=== PATIENT | male | born 1965 | race Caucasian/White ===

== ENCOUNTER 2018-07-27 12:33 | Outpatient (CLI) | payer MEDICARE ==
[~2018-07-27] VITALS: Ht 168.9 cm; Wt 90.7 kg
[2018-07-27] MEDS ORDERED: RT-ALBUINH INH (12:35)
[2018-07-27] MEDS ORDERED: DICL50TA6 PO (12:35)
== END 2018-07-27 12:39 | disposition home or self-care (01) ==
LOC: PREOP 12:33
PROVIDERS: ATTEND Otolaryngology Otolaryngology/Facial Plastic Surgery
DX: Z01.818 Encounter for other preprocedural examination (principal)

== ENCOUNTER 2018-07-31 05:56 | Day surgery (SDC) | payer MEDICARE ==
[~2018-07-31] VITALS: Ht 168.9 cm; Wt 103.4 kg
[~2018-07-31 05:56] MED LIST: DICL50TA6 PO; RT-ALBUINH INH
--- OUTSIDE RECORDS SUMMARY | 2018-07-31 05:59 | XMS REPORT ---
Author Author [facility] Medical Staff Organization [facility] Address [address] [place], [place] [address] Phone [phone] Summary purpose CCDA Sent to [facility] Chief Complaint and Reason for Visit No authorized Reason for Visit (Admitting Diagnosis) is available for this visit. Problem list No authorized problems tracked for continuity of care are available for this visit. Encounters No authorized problems tracked for encounter diagnoses are available for this visit. Medications No medications recorded for this patient visit Allergies, adverse reactions, alerts Allergen Category Ingredient Status Reaction Severity Onset No known drug allergies No known drug allergies No known drug allergies Active Immunizations No immunizations recorded for this patient visit Relevant diagnostic tests and/or laboratory data No authorized results are available for this patient visit History of procedures Procedure Code Code Type Description Date Performed Performing Physician 83314 CPT-4 EMERGENCY DEPT VISIT 11-28-2015 DONNA LOVE Functional status No functional or cognitive status observations are available for this visit. Vital signs No authorized vital signs are available for this visit. Social history No Social History or smoking status observations were recorded for this visit. ( Unknown if ever smoked.) Treatment Plan No treatment plan text is available for this visit. Hospital discharge instructions No discharge instruction text is available for this visit.
--- OUTSIDE RECORDS SUMMARY | 2018-07-31 06:00 | XMS REPORT ---
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 Chente Lomeli MD [address] [place] [address] Sep, 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 ; 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 ; Mild intermittent asthma, uncomplicated J45.20 and Essential (primary) hypertension I10 Chente Lomeli MD [address] [place] [address] May, Pneumonia due to other specified bacteria J15.8 Chente Lomeli MD [address] [place] [address] May, Chente Lomeli MD [address] [place] [address] Apr, Acute bronchitis, unspecified J20.9 Chente Lomeli MD [address] [place] [address] Apr, Acute bronchitis, unspecified J20.9 Chente Lomeli MD [address] [place] [address] August, 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 Chente Lomeli MD [address] [place] [address] August, 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 Chente Lomeli MD [address] [place] [address] Nov, Chente Lomeli MD [address] [place] [address] Nov, Chente Lomeli MD [address] [place] [address] Oct, Chente Lomeli MD [address] [place] [address] Sep, Essential (primary) hypertension I10 Chente Lomeli MD [address] [place] [address] 16 Sep, 2015 Unilateral primary osteoarthritis, right hip M16.11 and Other sprain of right hip, initial encounter S73.191A Chente Lomeli MD [address] [place] [address] August, Chente Lomeli MD [address] [place] [address] Sep, Cellulitis and abscess of oral soft tissues 528.3 Chente Lomeli MD [address] [place] [address] May, Cellulitis and abscess of oral soft tissues 528.3 IMMUNIZATIONS No Known Immunizations SOCIAL HISTORY Never Assessed REASON FOR VISIT Ty PLAN OF CARE VITAL SIGNS MEDICATIONS Unknown Medications RESULTS No Results PROCEDURES No Known procedures INSTRUCTIONS MEDICATIONS ADMINISTERED No Known Medications MEDICAL (GENERAL) HISTORY Type Description Date Surgical History cyst excised from gums Hospitalization History No know Hospitalization history
--- OUTSIDE RECORDS SUMMARY | 2018-07-31 06:00 | XMS REPORT ---
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 32936701 ALLERGIES No Information ENCOUNTERS Encounter Location Date Diagnosis Chente Lomeli MD [address] [place] [phone] Nov, Chente Lomeli MD [address] [place] [address] Oct, 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 Chente Lomeli MD [address] [place] [address] Oct, Chente Lomeli MD [address] [place] [address] Oct, 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 Chente Lomeli MD [address] [place] [address] Sep, 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 ; 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 ; Mild intermittent asthma, uncomplicated J45.20 and Essential (primary) hypertension I10 Chente Lomeli MD [address] [place] [address] May, Pneumonia due to other specified bacteria J15.8 Chente Lomeli MD [address] [place] [address] May, Chente Lomeli MD [address] [place] [address] Apr, Acute bronchitis, unspecified J20.9 Chente Lomeli MD [address] [place] [address] 10 Shahbaz, 2018 Acute bronchitis, unspecified J20.9 Chente Lomeli MD [address] [place] [address] August, 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 Chente Lomeli MD [address] [place] [address] August, 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 Chente Lomeli MD [address] [place] [address] Nov, Chente Lomeli MD [address] [place] [address] Nov, Chente Lomeli MD [address] [place] [address] Oct, Chente Lomeli MD [address] [place] [address] Sep, Essential (primary) hypertension I10 Chente Lomeli MD [address] [place] [address] 16 Sep, 2015 Unilateral primary osteoarthritis, right hip M16.11 and Other sprain of right hip, initial encounter S73.191A Chente Lomeli MD [address] [place] [address] August, Chente Lomeli MD [address] [place] [address] Sep, Cellulitis and abscess of oral soft tissues 528.3 Chente Lomeli MD [address] [place] [address] 13 May, 2012 Cellulitis and abscess of oral soft tissues 528.3 IMMUNIZATIONS No Known Immunizations SOCIAL HISTORY Never Assessed REASON FOR VISIT acetaminophen/cod #3 PLAN OF CARE VITAL SIGNS MEDICATIONS Unknown Medications RESULTS No Results PROCEDURES No Known procedures INSTRUCTIONS MEDICATIONS ADMINISTERED No Known Medications MEDICAL (GENERAL) HISTORY Type Description Date Surgical History cyst excised from gums
--- OUTSIDE RECORDS SUMMARY | 2018-07-31 06:00 | XMS REPORT ---
Author Author [facility] Medical Staff Organization [facility] Address [address] [place], [place] [address] Phone [phone] Summary purpose CCDA Sent to [facility] Chief Complaint and Reason for Visit Admit Diagnosis 1 R & L GROIN DISCOMFORT Problem list No authorized problems tracked for [...] visit Relevant diagnostic tests and/or laboratory data RESULTS Urinalysis :30:00 Result Normal Range Units Site Clean Catch Urine Color Yellow Yellow Urine Appearance Clear Clear Urine Glucose Negative Negative Urine Bilirubin Negative Negative Urine Ketones Negative Negative Urine Specific [place] L <=1.005 1.010-1.020 Urine PH 6.5 5.5-7.5 Urine Protein Negative Negative Urine Urobilinogen 0.2 0.2-1.0 Urine Nitrites Negative Negative Urine Blood AB Trace Negative Urine Leukocytes Negative Negative Urine WBC's None Seen Urine RBC's None Seen Urine Bacteria None Seen Serology Group :30:00 Result Normal Range Units Urine Amphetamines Negative Negative Urine Cocaine Negative Negative Cannabinoids(Marijuana Negative Negative Urine Benzodiazepines Negative Negative Urine Tricyclic Antidep. Negative Negative Urine Barbiturates Negative Negative Urine MDMA Negative Negative Urine Opiates Negative Negative Urine Phencyclidine Negative Negative Urine Oxycodone Negative Negative Urine Propoxyphene Negative Negative Urinalysis :30:00 Result Normal Range Units Site Clean Catch Urine Color Yellow Yellow Urine Appearance Clear Clear Urine Glucose Negative Negative Urine Bilirubin Negative Negative Urine Ketones Negative Negative Urine Specific [place] L <=1.005 1.010-1.020 Urine PH 6.5 5.5-7.5 Urine Protein Negative Negative Urine Urobilinogen 0.2 0.2-1.0 Urine Nitrites Negative Negative Urine Blood AB Trace Negative Urine Leukocytes Negative Negative Urine WBC's None Seen Urine RBC's None Seen Urine Bacteria None Seen Refractometer 1.005 History of procedures Procedure Code Code Type Description Date Performed Performing Physician 30931 CPT-4 EMERGENCY DEPT VISIT 11-28-2015 DONNA LOVE 39540 CPT-4 THER/PROPH/DIAG INJ, SC/IM 11-28-2015 DONNA LOVE 19188 CPT-4 DRUG SCREEN NON TLC DEVICES 11-28-2015 DONNA LOVE 59702 CPT-4 URINALYSIS, AUTO W/SCOPE 11-28-2015 DONNA LOVE J1885 CPT-4 KETOROLAC TROMETHAMINE INJ 11-28-2015 DONNA LOVE 20935 CPT-4 URINALYSIS TEST PROCEDURE 11-28-2015 DONNA LOVE Functional status Cognitive Status Finding Observation Time Level of Consciousne Alert [id number] Oriented to Person Yes [id number]:[address] Yes [id number]:55 Oriented to Time Yes 34-23-655625:55 Vital signs Type Value Date Respirations 20 :15 Pulse 96 :15 O2 Saturation 95% :15 Systolic Blood Press 164mm/HG :15 Diastolic Blood Pres 90mm/HG :15 Temperature (Fahr) 98.1Degrees :15 Social history Type Value Smoking Status CURRENT EVERY DAY SMOKER Treatment Plan No treatment plan text is available for this visit. Hospital discharge instructions Diagnosis strain inguinal ligament left chronic Diet as tolerated Activity Level as tolerated Follow up with pcp Appointment Date and this week Other Instructions advil 2tabs 3x daily after a meal
--- OUTSIDE RECORDS SUMMARY | 2018-07-31 06:00 | XMS REPORT ---
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 41437898 ALLERGIES No Known Allergies ENCOUNTERS Encounter Location Date Diagnosis Chente Lomeli MD [address] [place] [address] Oct, Chente Lomeli MD [address] [place] [address] Oct, 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 Chente Lomeli MD [address] [place] [address] Sep, 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 ; 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 ; Mild intermittent asthma, uncomplicated J45.20 and Essential (primary) hypertension I10 Chente Lomeli MD [address] [place] [address] May, Pneumonia due to other specified bacteria J15.8 Chente Lomeli MD [address] [place] [address] May, Chente Lomeli MD [address] [place] [address] Apr, Acute bronchitis, unspecified J20.9 Chente Lomeli MD [address] [place] [address] Apr, Acute bronchitis, unspecified J20.9 Chente Lomeli MD [address] [place] [address] August, 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 Chente Lomeli MD [address] [place] [address] August, 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 Chente Lomeli MD [address] [place] [address] Nov, Chente Lomeli MD [address] [place] [address] Nov, Chente Lomeli MD [address] [place] [address] Oct, Chente Lomeli MD [address] [place] [address] 30 Sep, 2015 Essential (primary) hypertension I10 Chente Lomeli MD [address] [place] [address] 16 Sep, 2015 Unilateral primary osteoarthritis, right hip M16.11 and Other sprain of right hip, initial encounter S73.191A Chente Lomeli MD [address] [place] [address] August, Chente Lomeli MD [address] [place] [address] Sep, Cellulitis and abscess of oral soft tissues 528.3 Chente Lomeli MD [address] [place] [address] 13 May, 2012 Cellulitis and abscess of oral soft tissues 528.3 IMMUNIZATIONS No Known Immunizations SOCIAL HISTORY Never Assessed REASON FOR VISIT needs referral to a surgeon for hip replacement, SOB, wants Albuterol for nebulizer, he needs something for pain, Diclofenac is not helping, he only wants 10-12 days of it until his Medicaid kicks in PLAN OF CARE Activity Details Follow Up 3 Weeks Reason: VITAL SIGNS Height 66.0 in 2017-10-21 Weight 219 lbs 2017-10-21 BMI 35.34 kg/m2 2017-10-21 Heart Rate 102 /min 2017-10-21 Oximetry 95 % 2017-10-21 Respiratory Rate 22 /min 2017-10-21 Blood pressure systolic 193 mm Hg 2017-10-21 Blood pressure diastolic 102 mm Hg 2017-10-21 MEDICATIONS Medication Instructions Dosage Frequency Start Date End Date Duration Status Acetaminophen-Codeine #3 300-30 MG Orally 4 times a day 1 tablet as needed 6h Sep, Oct, 07 days Active Albuterol Sulfate HFA 108 (90 Base) MCG/ACT Inhalation every 6 hrs 2 puffs as needed 6h Apr, Active Diclofenac Sodium 50 MG TAKE ONE TABLET BY MOUTH THREE TIMES DAILY. Active Albuterol Sulfate (2.5 MG/3ML) 0.083% Inhalation Three times a day 3 ml as needed 8h Apr, Active RESULTS No Results PROCEDURES No Known procedures INSTRUCTIONS MEDICATIONS ADMINISTERED No Known Medications MEDICAL (GENERAL) HISTORY Type Description Date Surgical History cyst excised from gums
--- OUTSIDE RECORDS SUMMARY | 2018-07-31 06:00 | XMS REPORT ---
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 09644984 ALLERGIES No Information ENCOUNTERS Encounter Location Date Diagnosis Chente Lomeli MD [address] [place] [address] Dec, Chente Lomeli MD [address] [place] [address] Nov, 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 Chente Lomeli MD [address] [place] [address] Nov, Chente Lomeli MD [address] [place] [address] Nov, Chente Lomeli MD [address] [place] [address] Oct, 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 Chente Lomeli MD [address] [place] [address] Oct, Chente Lomeli MD [address] [place] [address] Oct, 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 Chente Lomeli MD [address] [place] [address] Sep, 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 ; 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 Chente Lomeli MD [address] [place] [address] August, 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 Chente Lomeli MD [address] [place] [address] Nov, Chente Lomeli MD [address] [place] [address] Nov, Chente Lomeli MD [address] [place] [address] Oct, Chente Lomeli MD [address] [place] [address] Sep, Essential (primary) hypertension I10 Chente Lomeli MD [address] [place] [address] Sep, Unilateral primary osteoarthritis, right hip M16.11 and Other sprain of right hip, initial encounter S73.191A Chente Lomeli MD [address] [place] [address] August, Chente Lomeli MD [address] [place] [address] Sep, Cellulitis and abscess of oral soft tissues 528.3 Chente Lomeli MD [address] [place] [address] May, Cellulitis and abscess of oral soft tissues 528.3 IMMUNIZATIONS No Known Immunizations SOCIAL HISTORY Never Assessed REASON FOR VISIT acetaminophen #3 refil PLAN OF CARE VITAL SIGNS MEDICATIONS Medication Instructions Dosage Frequency Start Date End Date Duration Status Acetaminophen-Codeine #3 300-30 MG Orally 4 times a day 1 tablet as needed 6h Sep, 30 days Active RESULTS No Results PROCEDURES No Known procedures INSTRUCTIONS MEDICATIONS ADMINISTERED No Known Medications MEDICAL (GENERAL) HISTORY Type Description Date Surgical History cyst excised from gums Hospitalization History No know Hospitalization history
--- OUTSIDE RECORDS SUMMARY | 2018-07-31 06:00 | XMS REPORT ---
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 02917026 ALLERGIES No Information ENCOUNTERS Encounter Location Date Diagnosis Chente Lomeli MD [address] [place] [address] Oct, 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 Chente Lomeli MD [address] [place] [address] Sep, 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 ; 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 ; Mild intermittent asthma, uncomplicated J45.20 and Essential (primary) hypertension I10 Chente Lomeli MD [address] [place] [address] 07 May, 2017 Pneumonia due to other specified bacteria J15.8 Chente Lomeli MD [address] [place] [address] May, Chente Lomeli MD [address] [place] [address] Apr, Acute bronchitis, unspecified J20.9 Chente Lomeli MD [address] [place] [address] Apr, Acute bronchitis, unspecified J20.9 Chente Lomeli MD [address] [place] [address] August, 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 Chente Lomeli MD [address] [place] [address] August, 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 Chente Lomeli MD [address] [place] [address] Nov, Chente Lomeli MD [address] [place] [address] Nov, Chente Lomeli MD [address] [place] [address] Oct, Chente Lomeli MD [address] [place] [address] Sep, Essential (primary) hypertension I10 Chente Lomeli MD [address] [place] [address] 16 Sep, 2015 Unilateral primary osteoarthritis, right hip M16.11 and Other sprain of right hip, initial encounter S73.191A Chente Lomeli MD [address] [place] [address] August, Chente Lomeli MD [address] [place] [address] Sep, Cellulitis and abscess of oral soft tissues 528.3 Chente Lomeli MD [address] [place] [address] May, Cellulitis and abscess of oral soft tissues 528.3 IMMUNIZATIONS No Known Immunizations SOCIAL HISTORY Never Assessed REASON FOR VISIT Tylenol #3 PLAN OF CARE VITAL SIGNS MEDICATIONS Medication Instructions Dosage Frequency Start Date End Date Duration Status Acetaminophen-Codeine #3 300-30 MG Orally 4 times a day 1 tablet as needed 6h Sep, Nov, 30 days Active RESULTS No Results PROCEDURES No Known procedures INSTRUCTIONS MEDICATIONS ADMINISTERED No Known Medications MEDICAL (GENERAL) HISTORY Type Description Date Surgical History cyst excised from gums
--- OUTSIDE RECORDS SUMMARY | 2018-07-31 06:00 | XMS REPORT ---
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 58310263 ALLERGIES No Information ENCOUNTERS Encounter Location Date Diagnosis Chente Lomlei MD [address] [place] [phone] Dec, Chente Lomeli MD [address] [place] [phone] Nov, 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 Chente Lomeli MD [address] [place] [phone] Nov, Chente Lomeli MD [address] [place] [address] Nov, Chente Lomeli MD [address] [place] [address] Oct, 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 Chente Lomeli MD [address] [place] [address] Oct, Chente Lomeli MD [address] [place] [address] Oct, 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 Chente Lomeli MD [address] [place] [address] Sep, 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 ; 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 ; Mild intermittent asthma, uncomplicated J45.20 and Essential (primary) hypertension I10 Chente Lomeli MD [address] [place] [phone] 07 May, 2017 Pneumonia due to other specified bacteria J15.8 Chente Lomeli MD [address] [place] [phone] May, Chente Lomeli MD [address] [place] [address] Apr, Acute bronchitis, unspecified J20.9 Chente Lomeli MD [address] [place] [address] Apr, Acute bronchitis, unspecified J20.9 Chente Lomeli MD [address] [place] [address] August, 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 Chente Loemli MD [address] [place] [address] August, 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 Chente Lomeli MD [address] [place] [address] Nov, Chente Lomeli MD [address] [place] [address] Nov, Chente Lomeli MD [address] [place] [phone] Oct, Chente Lomeli MD [address] [place] [address] Sep, Essential (primary) hypertension I10 Chente Lomeli MD [address] [place] [address] Sep, Unilateral primary osteoarthritis, right hip M16.11 and Other sprain of right hip, initial encounter S73.191A Chente Lomeli MD [address] [place] [address] August, Chente Lomeli MD [address] [place] [address] Sep, Cellulitis and abscess of oral soft tissues 528.3 Chente Lomeli MD [address] [place] [address] 13 May, 2012 Cellulitis and abscess of oral soft tissues 528.3 IMMUNIZATIONS No Known Immunizations SOCIAL HISTORY Never Assessed REASON FOR VISIT PLAN OF CARE VITAL SIGNS MEDICATIONS Unknown Medications RESULTS No Results PROCEDURES No Known procedures INSTRUCTIONS MEDICATIONS ADMINISTERED No Known Medications MEDICAL (GENERAL) HISTORY Type Description Date Surgical History cyst excised from gums Hospitalization History No know Hospitalization history
--- OUTSIDE RECORDS SUMMARY | 2018-07-31 06:00 | XMS REPORT ---
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 03007375 ALLERGIES No Information ENCOUNTERS Encounter Location Date Diagnosis Chente Lomeli MD [address] [place] [address] Oct, 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 Chente Lomeli MD [address] [place] [address] Oct, Chente Lomeli MD [address] [place] [address] Oct, 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 Chente Lomeli MD [address] [place] [address] Sep, 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 ; 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 ; Mild intermittent asthma, uncomplicated J45.20 and Essential (primary) hypertension I10 Chente Lomeli MD [address] [place] [phone] May, Pneumonia due to other specified bacteria J15.8 Chente Lomeli MD [address] [place] [address] May, Chente Lomeli MD [address] [place] [address] Apr, Acute bronchitis, unspecified J20.9 Chente Lomeli MD [address] [place] [phone] Apr, Acute bronchitis, unspecified J20.9 Chente Lomeli MD [address] [place] [address] August, 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 Chente Lomeli MD [address] [place] [address] August, 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 Chente Lomeli MD [address] [place] [phone] Nov, Chente Lomeli MD [address] [place] [address] Nov, Chente Lomeli MD [address] [place] [phone] Oct, Chente Lomeli MD [address] [place] [address] Sep, Essential (primary) hypertension I10 Chente Lomeli MD [address] [place] [address] Sep, Unilateral primary osteoarthritis, right hip M16.11 and Other sprain of right hip, initial encounter S73.191A Chente Lomeli MD [address] [place] [phone] August, Chente Lomeli MD [address] [place] [phone] Sep, Cellulitis and abscess of oral soft tissues 528.3 Chente Lomeli MD [address] [place] [address] May, Cellulitis and abscess of oral soft tissues 528.3 IMMUNIZATIONS No Known Immunizations SOCIAL HISTORY Never Assessed REASON FOR VISIT acetaminophen CoD#3 PLAN OF CARE VITAL SIGNS MEDICATIONS Medication [...]
--- OUTSIDE RECORDS SUMMARY | 2018-07-31 06:01 | XMS REPORT ---
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 29209387 ALLERGIES No Known Allergies ENCOUNTERS Encounter Location Date Diagnosis Chente Lomeli MD [address] [place] [phone] 07 May, 2017 Pneumonia due to other specified bacteria J15.8 Chente Lomeli MD [address] [place] [phone] May, Chente Lomeli MD [address] [place] [phone] Apr, Acute bronchitis, unspecified J20.9 Chente Lomeli MD [address] [place] [address] Apr, Acute bronchitis, unspecified J20.9 Chente Lomeli MD [address] [place] [address] August, 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 Chente Lomeli MD [address] [place] [address] August, 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 Chente Lomeli MD [address] [place] [phone] Nov, Chente Lomeli MD [address] [place] [phone] Nov, Chente Lomeli MD [address] [place] [phone] Oct, Chente Lomeli MD [address] [place] [address] Sep, Essential (primary) hypertension I10 Chente Lomeli MD [address] [place] [address] Sep, Unilateral primary osteoarthritis, right hip M16.11 and Other sprain of right hip, initial encounter S73.191A Chente Lomeli MD [address] [place] [address] August, Chente Lomeli MD [address] [place] [address] Sep, Cellulitis and abscess of oral soft tissues 528.3 Chente Lomeli MD [address] [place] [address] May, Cellulitis and abscess of oral soft tissues 528.3 IMMUNIZATIONS No Known Immunizations SOCIAL HISTORY Never Assessed REASON FOR VISIT Follow up on his visit from 05-07-17, Not coughing as much and he still is coughing up some light clear sputum. PLAN OF CARE Activity Details Follow Up prn Reason: VITAL SIGNS Height 66.0 in 2017-05-16 Weight 224 lbs 2017-05-16 BMI 36.15 kg/m2 2017-05-16 Heart Rate 105 /min 2017-05-16 Oximetry 97 % 2017-05-16 Temperature 97.6 degrees Fahrenheit 2017-05-16 Blood pressure systolic 173 mm Hg 2017-05-16 Blood pressure diastolic 92 mm Hg 2017-05-16 MEDICATIONS Medication Instructions Dosage Frequency Start Date End Date Duration Status Diclofenac Sodium 50 MG TAKE ONE TABLET BY MOUTH THREE TIMES DAILY. Active Amoxicillin 500 MG Orally three times a day 1 capsule 8h Apr, Apr, 10 day(s) Active Albuterol Sulfate (2.5 MG/3ML) 0.083% Inhalation Three times a day 3 ml as needed 8h Apr, Active Albuterol Sulfate HFA 108 (90 Base) MCG/ACT Inhalation every 6 hrs 2 puffs as needed 6h Apr, Active RESULTS No Results PROCEDURES Procedure Date Ordered Result Body Site DOC PATIENT CURRNT NON-TOBACCO USER May 16, 2017 PAIN ASSESS NEG NO F/U PLAN RQR May 16, 2017 INSTRUCTIONS MEDICATIONS ADMINISTERED No Known Medications MEDICAL (GENERAL) HISTORY Type Description Date Surgical History cyst excised from gums
--- OUTSIDE RECORDS SUMMARY | 2018-07-31 06:01 | XMS REPORT ---
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 16089358 ALLERGIES No Known Allergies ENCOUNTERS Encounter Location Date Diagnosis Chente Lomeli MD [address] [place] [phone] 07 May, 2017 Pneumonia due to other specified bacteria J15.8 Chente Lomeli MD [address] [place] [phone] May, Chente Lomeli MD [address] [place] [address] Apr, Acute bronchitis, unspecified J20.9 Chente Lomeli MD [address] [place] [address] Apr, Acute bronchitis, unspecified J20.9 Chente Lomeli MD [address] [place] [address] August, 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 Chente Lomeli MD [address] [place] [address] August, 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 Chente Lomeli MD [address] [place] [address] Nov, hCente Lomeli MD [address] [place] [phone] Nov, Chente Lomeli MD [address] [place] [address] Oct, Chente Lomeli MD [address] [place] [address] Sep, Essential (primary) hypertension I10 Chente Lomeli MD [address] [place] [address] Sep, Unilateral primary osteoarthritis, right hip M16.11 and Other sprain of right hip, initial encounter S73.191A Chente Lomeli MD [address] [place] [address] August, Chente Lomeli MD [address] [place] [address] 19 Sep, 2012 Cellulitis and abscess of oral soft tissues 528.3 Chente Lomeli MD [address] [place] [address] May, Cellulitis and abscess of oral soft tissues 528.3 IMMUNIZATIONS No Known Immunizations SOCIAL HISTORY Never Assessed REASON FOR VISIT SOB, it is worse first thing in the am, yesterday he was so SOB he used his moms oxygen, diarrhea X 5 days PLAN OF CARE Activity Details Follow Up 2 - 3 Days Reason:If not markedly improved VITAL SIGNS Height 66.0 in 2017-06-04 Weight 217 lbs 2017-06-04 BMI 35.02 kg/m2 2017-06-04 Heart Rate 90 /min 2017-06-04 Oximetry 89 % 2017-06-04 Temperature 96.6 degrees Fahrenheit 2017-06-04 Respiratory Rate 24 /min 2017-06-04 MEDICATIONS Medication Instructions Dosage Frequency Start Date End Date Duration Status Albuterol Sulfate HFA 108 (90 Base) MCG/ACT Inhalation every 6 hrs 2 puffs as needed 6h Apr, Active Augmentin 500-125 MG Orally Three times a day 1 tablet 8h May, May, 10 days Active Diclofenac Sodium 50 MG TAKE ONE TABLET BY MOUTH THREE TIMES DAILY. Active Albuterol Sulfate (2.5 MG/3ML) 0.083% Inhalation Three times a day 3 ml as needed 8h Apr, Active RESULTS Name Result Date Reference Range Chest X-ray PA and lateral 2017-06-04 PROCEDURES No Known procedures INSTRUCTIONS MEDICATIONS ADMINISTERED No Known Medications MEDICAL (GENERAL) HISTORY Type Description Date Surgical History cyst excised from gums
--- OUTSIDE RECORDS SUMMARY | 2018-07-31 06:01 | XMS REPORT ---
Author Author Chente Lomeli Organization [employer] Address Unknown Phone Unavailable Care Team Providers Care Sock Ironer Name Role Phone Chente Lomeli CP Unavailable Allergies, Adverse Reactions, Alerts Substance Reaction Event Type N.K.D.A. Info Not Available Non Drug Allergy Problems Problem Type Condition Code Onset Dates Condition Status Assessment Essential (primary) hypertension I10 Active Medications Medication Code System Code Instructions Start Date End Date Status Dosage Cephalexin [facility] [address]-25 500 MG Orally three times a day October 14, 2012 1 capsule Vital Signs Date/Time: October 26, 2015 Blood Pressure Systolic 165 mm Hg Weight 00 lbs Height 66.0 in Blood Pressure Diastolic 91 mm Hg Results No Known Results Summary Purpose [employer] Submission
--- OUTSIDE RECORDS SUMMARY | 2018-07-31 06:01 | XMS REPORT | Continuity of Care Document ---
Author Author [facility] Organization [facility] Address Unknown Phone Unavailable Allergies Active Description Code Type Severity Reaction Onset Reported/Identified Relationship to Patient Clinical Status Yes No Known Drug Allergies 39937556 N/A N/A Yes No Known Environmental Allergies 66151428 N/A N/A Yes No Known Food Allergies 50421548 N/A N/A Yes No known drug allergies 32470766 ND N/A N/A 11/28/2015 Confirmed or Verified Medications There is no data. Problems Date Dx Coded Attending Type Code Diagnosis Diagnosed By 11/28/2015 DONNA LOVE MD R10.32 Left lower quadrant pain 11/28/2015 DONNA LOVE MD R26.2 Difficulty in walking, not elsewhere classified 11/28/2015 DONNA LOVE MD S39.83XA Other specified injuries of pelvis, initial encounter 11/28/2015 DONNA LOVE MD Y93.9 Activity, unspecified 11/28/2015 DONNA LOVE MD R10.32 Left lower quadrant pain 11/28/2015 DONNA LOVE MD R26.2 Difficulty in walking, not elsewhere classified 11/28/2015 DONNA LOVE MD S39.83XA Other specified injuries of pelvis, initial encounter 11/28/2015 DONNA LOVE MD Y93.9 Activity, unspecified 12/22/2017 P [id number] Encounter for preprocedural cardiovascular examination 12/22/2017 S W28593 Encounter for preprocedural laboratory examination 12/22/2017 S Z0183 Encounter for blood typing 01/08/2018 S E669 Obesity, unspecified 01/08/2018 P M1612 Unilateral primary osteoarthritis, left hip 01/08/2018 S Z6834 Body mass index (BMI) 34.0-34.9, adult 01/08/2018 S Z720 Tobacco use 01/08/2018 S P49800 [facility] (current[facility] drug therapy 01/08/2018 S E669 Obesity, unspecified 01/08/2018 P M1612 Unilateral primary osteoarthritis, left hip 01/08/2018 S Z6834 Body mass index (BMI) 34.0-34.9, adult 01/08/2018 S Z720 Tobacco use 01/08/2018 S 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 07/14/2018 KSENIA MARTÍNEZ MD Other M16.11 UNILATERAL PRIMARY OSTEOARTHRITIS, RIGHT HIP 07/14/2018 Other J15.8 PNEUMONIA DUE TO OTHER SPECIFIED BACTERIA 07/14/2018 KSENIA MARTÍNEZ MD Other M16.11 UNILATERAL PRIMARY OSTEOARTHRITIS, RIGHT HIP 07/14/2018 Other J15.8 PNEUMONIA DUE TO OTHER SPECIFIED BACTERIA Procedures Code [place] [address] DRUG SCREEN NON TLC DEVICES DONNA LOVE MD 11/28/2015 70808 URINALYSIS AUTO W/SCOPE DONNA LOVE MD 11/28/2015 84418 URINALYSIS TEST PROCEDURE DONNA LOVE MD 11/28/2015 48638 THER/PROPH/DIAG INJ SC/IM DONNA LOVE MD 11/28/2015 68655 EMERGENCY DEPT VISIT DONNA LOVE MD 11/28/2015 J1885 KETOROLAC TROMETHAMINE INJ DONNA LOVE MD 11/28/2015 57614 EMERGENCY DEPT VISIT DONNA LOVE MD 11/28/2015 [id number] Replacement of Left Hip Joint with Ceramic on Polyethylene Synthetic Substitute, Uncemented, Open Approach 01/07/2018 Results Test Result Range Urinalysis - 11/28/15 21:39 Glucose Negative Negative Leukocyte Negative Negative Nitrite Negative Negative pH 6.5 5.5-7.5 Urine Appearance Clear Clear Protein Negative Negative Ketones Negative Negative Urobilinogen 0.2 0.2-1.0 Urine RBC NONESEEN Specific Saxon <=1.005 1.010-1.020 Urine WBC NONESEEN Urine Bacteria NONESEEN Blood Trace Negative Color Yellow Yellow SG by Refractometer 1.005 Bilirubin Negative Negative Site CC Urine Drug Screen - 11/28/15 21:40 Opiates Ur NEG Negative MDMA Ur NEG Negative Tricyclics Ur NEG Negative Propoxyphene Ur NEG Negative Phencyclidine Ur NEG Negative Cannabinoid Ur NEG Negative Oxycodone Ur NEG Negative Amphetamine Ur NEG Negative Cocaine Ur NEG Negative Barbituates Ur NEG Negative Benzo Ur NEG Negative Encounters ACCT No. Visit Date/Time Discharge Status Pt. Type Provider Facility Loc./Unit Complaint [id number] 04/17/2018 17:05:40 04/17/2018 23:59:59 CLS Outpatient Annette Oropeza [id number] 03/05/2018 17:12:06 03/05/2018 23:59:59 CLS Outpatient Annette Oropeza [id number] 11/28/2015 21:20:00 11/28/2015 23:00:00 DIS Emergency KATE BERRY, [facility] ER [id number] 11/28/2015 21:30:00 11/28/2015 21:30:00 DIS Outpatient KATE BERRY, [facility] OTHER [id number] 08/28/2016 12:33:00 08/28/2016 23:59:59 CLS Outpatient TANYA BERRY, [facility] RAD [id number] 06/05/2017 11:11:00 Document Registration [id number] 02/13/2018 13:27:39 Document Registration [id number] 01/02/2018 11:32:51 Document Registration [id number] 12/26/2017 08:04:40 Document Registration [id number] 12/22/2017 10:09:00 Document Registration
--- OUTSIDE RECORDS SUMMARY | 2018-07-31 06:01 | XMS REPORT ---
Author Author Chente Lomeli Organization [employer] Address Unknown Phone Unavailable Care Team Providers Care Artist Model Name Role Phone Chente Lomeli CP Unavailable Allergies No Known Allergies Problems No Known Problems Medications Medication Code System Code Instructions Start Date End Date Status Dosage Diclofenac Sodium [facility] [address]-34 50 MG Orally Three times a day Dec 01, 2015 Dec 11, 2015 1 tablet Results No Known Results Summary Purpose [employer] Submission
--- OUTSIDE RECORDS SUMMARY | 2018-07-31 06:01 | XMS REPORT ---
Author Author Chente Lomeli Organization [employer] Address Unknown Phone Unavailable Care Team Providers Care Electrician Name Role Phone Chente Lomeli CP Unavailable Allergies No Known Allergies Problems No Known Problems Medications Medication Code System Code Instructions Start Date End Date Status Dosage Diclofenac Sodium [facility] [address]-22 50 MG Orally Three times a day Dec 01, 2015 1 tablet Results No Known Results Summary Purpose [employer] Submission
--- OUTSIDE RECORDS SUMMARY | 2018-07-31 06:01 | XMS REPORT ---
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 26226595 ALLERGIES No Information ENCOUNTERS Encounter Location Date Diagnosis Chente Lomeli MD [address] [place] [address] Oct, Chente Lomeli MD [address] [place] [address] Oct, 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 Chente Lomeli MD [address] [place] [address] Sep, 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 ; 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 ; Mild intermittent asthma, uncomplicated J45.20 and Essential (primary) hypertension I10 Chente Lomeli MD [address] [place] [address] May, Pneumonia due to other specified bacteria J15.8 Chente Lomeli MD [address] [place] [address] May, Chente Lomeli MD [address] [place] [address] Apr, Acute bronchitis, unspecified J20.9 Chente Lomeli MD [address] [place] [address] Apr, Acute bronchitis, unspecified J20.9 Chente Lomeli MD [address] [place] [address] August, 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 Chente Lomeli MD [address] [place] [address] August, 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 Chente Lomeli MD [address] [place] [address] Nov, Chente Lomeli MD [address] [place] [address] Nov, Chente Lomeli MD [address] [place] [address] Oct, Chente Lomeli MD [address] [place] [address] 30 Sep, 2015 Essential (primary) hypertension I10 Chente Lomeli MD [address] [place] [address] 16 Sep, 2015 Unilateral primary osteoarthritis, right hip M16.11 and Other sprain of right hip, initial encounter S73.191A Chente Lomeli MD [address] [place] [address] August, Chente Lomeli MD [address] [place] [address] Sep, Cellulitis and abscess of oral soft tissues 528.3 Chente Lomeli MD [address] [place] [address] 13 May, 2012 Cellulitis and abscess of oral soft tissues 528.3 IMMUNIZATIONS No Known Immunizations SOCIAL HISTORY Never Assessed REASON FOR VISIT albuterol PLAN OF CARE VITAL SIGNS MEDICATIONS Unknown Medications RESULTS No Results PROCEDURES No Known procedures INSTRUCTIONS MEDICATIONS ADMINISTERED No Known Medications MEDICAL (GENERAL) HISTORY Type Description Date Surgical History cyst excised from gums
--- OUTSIDE RECORDS SUMMARY | 2018-07-31 06:01 | XMS REPORT ---
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 69185397 ALLERGIES No Information ENCOUNTERS Encounter Location Date Diagnosis Chente Lomeli MD [address] [place] [phone] 07 May, 2017 Pneumonia due to other specified bacteria J15.8 Chente Lomeli MD [address] [place] [phone] May, Chente Lomeli MD [address] [place] [phone] Apr, Acute bronchitis, unspecified J20.9 Chente oLmeli MD [address] [place] [phone] Apr, Acute bronchitis, unspecified J20.9 Chente Lomeli MD [address] [place] [phone] August, 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 Chente Lomeli MD [address] [place] [phone] August, 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 Chente Lomeli MD [address] [place] [phone] Nov, Chente Lomeli MD [address] [place] [phone] Nov, Chente Lomeli MD [address] [place] [phone] Oct, Chente Lomeli MD [address] [place] [phone] Sep, Essential (primary) hypertension I10 Chente Lomeli MD [address] [place] [phone] Sep, Unilateral primary osteoarthritis, right hip M16.11 and Other sprain of right hip, initial encounter S73.191A Chente Lomeli MD [address] [place] [phone] August, Chente Lomeli MD [address] [place] [phone] Sep, Cellulitis and abscess of oral soft tissues 528.3 Chente Lomeli MD [address] [place] [phone] May, Cellulitis and abscess of oral soft tissues 528.3 IMMUNIZATIONS No Known Immunizations SOCIAL HISTORY Never Assessed REASON FOR VISIT antibiotics PLAN OF CARE VITAL SIGNS MEDICATIONS Medication Instructions Dosage Frequency Start Date End Date Duration Status Azithromycin 500 MG Orally Once a day 1 tablet 24h May, May, 3 days Active RESULTS No Results PROCEDURES No Known procedures INSTRUCTIONS MEDICATIONS ADMINISTERED No Known Medications MEDICAL (GENERAL) HISTORY Type Description Date Surgical History cyst excised from gums
[2018-07-31] MEDS ORDERED: LACTATED RINGERS 1,000 ML IV PRN (06:29)
[2018-07-31 06:31] VITALS: BP 150/92
[2018-07-31] MEDS ORDERED: DEXAMETHASONE 10 MG/ML (DECADRON) 1 ML VIAL ONE (07:06)
[2018-07-31] MEDS ORDERED: ONDANSETRON 4 MG/2 ML (SDV) Z0FRAN ONE (07:06)
[2018-07-31] MEDS ORDERED: MIDAZOLAM 2 MG/2 ML (VERSED) VIAL ONE (07:06)
[2018-07-31] MEDS ORDERED: proPOfol 200 MG/20 ML (DIPRIVAN) VIAL IV ONE ×2 (07:06→07:43)
[2018-07-31] MEDS ORDERED: fentaNYL INJECTION 100 MCG/2 ML AMP ONE (07:06)
[2018-07-31] MEDS ORDERED: LIDOCAINE PF 2% 5 ML (XYLOCAINE) VIAL ONE (07:06)
[2018-07-31] MEDS ORDERED: LIDOCAINE/EPI 1%-1:100,000 (XYLOCAINE) 20ML ONE (07:11)
[2018-07-31] MEDS ORDERED: SEVOFLURANE (ULTANE) 15 ML INHAL SOLN ONE (07:17)
[2018-07-31] MEDS ORDERED: ASPI-808 PO (07:19)
[2018-07-31] MEDS ORDERED: ACET325C5 PO (07:19)
[2018-07-31] MEDS ORDERED: PHENYLEPHRINE 100 MCG/ML 10 ML (ANESTHESIA) SYR ONE (07:37)
--- NOTE | 2018-07-31 07:49 | Progress Note-Pre Operative ---
Pre-Operative Progress Note H&P Reviewed The H&P was reviewed, patient examined and no changes noted. Date Seen by Provider: Jul 31, 2018 Time Seen by Provider: 06:30 Date H&P Reviewed: Jul 31, 2018 Time H&P Reviewed: 06:30 Pre-Operative Diagnosis: Right Tongue Lesion RICKY FELDMAN MD Jul 31, 2018 07:49
--- NOTE | 2018-07-31 07:52 | Progress Note-Post Operative ---
Post-Operative Progess Note Surgeon (s)/Keyboard Specialist (s) Surgeon RICKY FELDMAN MD Keyboard Specialist n/a Pre-Operative Diagnosis Right Tongue Lesion Post-Operative Diagnosis same Post-Op Procedure Note Date of Procedure: Jul 31, 2018 Name of Procedure Performed: Excision of Tongue Lesion with intermediate Repair Description & Findings Description and Findings: n/a Anesthesia Type lma Estimated Blood Loss minimal Packing none. Specimen(s) collected/removed tongue lesion RICKY FELDMAN MD Jul 31, 2018 07:52
[2018-07-31] MEDS ORDERED: ACETAMINOPHEN 325 MG TABLET PO PRN (08:00)
[2018-07-31] MEDS ORDERED: ONDANSETRON 4 MG/2 ML (SDV) Z0FRAN IVP PRN (08:00)
[2018-07-31] MEDS ORDERED: LIDOCAINE 2% VISCOUS 15 ML UDC PO PRN (08:00)
[2018-07-31] MEDS ORDERED: morphine INJ 10 MG/ML 1ML (SYR OR VIAL) IVP ONE (08:00)
[2018-07-31] MEDS ORDERED: HYDROcodone/APAP 5 MG/325 MG (LORTAB) TAB PO PRN (08:00)
[2018-07-31 08:50] VITALS: BP 153/84
[2018-07-31] MEDS ORDERED: LIDO15SO2 MM (09:09)
[2018-07-31] MEDS ORDERED: HYDR-4227 PO (09:09)
[2018-07-31 09:20] VITALS: BP 115/67
[2018-07-31 09:50] VITALS: BP 122/83
--- NOTE | 2018-07-31 10:27 | NUR ---
THIS RN WROTE IN APPOINTMENT TIME OF 11:00 A.M. ON AUGUST 10
--- NOTE | 2018-07-31 14:20 | Anesthesia-General Post-Op ---
General Patient Condition Mental Status/LOC: Same as Preop Cardiovascular: Satisfactory Nausea/Vomiting: Absent Respiratory: Satisfactory Pain: Controlled Complications: Absent Post Op Complications Complications None Follow Up Care/Instructions Patient Instructions None needed. Anesthesia/Patient Condition Patient Condition Patient is doing well, no complaints, stable vital signs, no apparent adverse anesthesia problems. No complications reported per nursing. MARGARET HAM CRNA Jul 31, 2018 14:20
== END 2018-07-31 10:26 | disposition home or self-care (01) ==
LOC: SDC 05:56
PROVIDERS: ATTEND Otolaryngology Otolaryngology/Facial Plastic Surgery
DX: D10.1 Benign neoplasm of tongue (principal); J44.9 Chronic obstructive pulmonary disease, unspecified; F17.210 Nicotine dependence, cigarettes, uncomplicated; Z79.899 Other long term (current) drug therapy
CPT/HCPCS: 87081

== ENCOUNTER 2018-09-15 15:51 | Inpatient (IN) | payer MEDICARE ==
[~2018-09-15] VITALS: Ht 170.2 cm; Wt 105.3 kg
[~2018-09-15 15:51] MED LIST changes: +ACET325C5 PO; +ASPI-808 PO; +HYDR-4227 PO; +LIDO15SO2 MM
--- OUTSIDE RECORDS SUMMARY | 2018-09-15 15:55 | XMS REPORT ---
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 62077480 Problem Essential (primary) hypertension I10 Active 49186732 ALLERGIES No Information ENCOUNTERS Encounter Location Date Diagnosis Chente Lomeli MD [address] [place] [phone] August, Chente Lomeli MD [address] [place] [phone] May, Chente Lomeli MD [address] [place] [phone] Apr, Chente Lomeli MD [address] [place] [phone] Apr, Chronic obstructive pulmonary disease with (acute) exacerbation J44.1 ; Other insomnia G47.09 and 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 Chente Lomeli MD [address] [place] [phone] Jan, 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 Chente Lomeli MD [address] [place] [phone] Dec, Chente Lomeli MD [address] [place] [phone] Nov, 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 Chente Lomeli MD [address] [place] [phone] Nov, Chente Lomeli MD [address] [place] [phone] Nov, Chente Lomeli MD [address] [place] [phone] Oct, 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 Chente Lomeli MD [address] [place] [phone] Oct, Chente Lomeli MD [address] [place] [phone] Oct, 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 Chente Lomeli MD [address] [place] [phone] Sep, 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 ; 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 ; Mild intermittent asthma, uncomplicated J45.20 and Essential (primary) hypertension I10 Chente Lomeli MD [address] [place] [phone] 07 May, 2017 Pneumonia due to other specified bacteria J15.8 Chente Lomeli MD [address] [place] [phone] 03 May, 2017 Chente Lomeli MD [address] [place] [phone] Apr, Acute bronchitis, unspecified J20.9 Chente Lomeli MD [address] [place] [phone] Apr, Acute bronchitis, unspecified J20.9 Chente Lomeli MD [address] [place] [phone] August, 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 Chente Lomeli MD [address] [place] [phone] August, 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 Chente Lomeli MD [address] [place] [phone] Nov, Chente Lomeli MD [address] [place] [phone] Nov, Chente Lomeli MD [address] [place] [phone] Oct, Chente Lomeli MD [address] [place] [phone] 30 Sep, 2015 Essential (primary) hypertension I10 Chente Lomeli MD [address] [place] [phone] 16 Sep, 2015 Unilateral primary osteoarthritis, right hip M16.11 and Other sprain of right hip, initial encounter S73.191A Chente Lomeli MD [address] [place] [address] August, Chente Lomeli MD [address] [place] [address] Sep, Cellulitis and abscess of oral soft tissues 528.3 Chente Lomeli MD [address] [place] [address] May, Cellulitis and abscess of oral soft tissues 528.3 IMMUNIZATIONS No Known Immunizations SOCIAL HISTORY Never Assessed REASON FOR VISIT amoxicillian PLAN OF CARE VITAL SIGNS MEDICATIONS Medication Instructions Dosage Frequency Start Date End Date Duration Status Amoxicillin 500 MG Orally Three times a day 1 tablet 8h August, August, 10 day(s) Active RESULTS No Results PROCEDURES No Known procedures INSTRUCTIONS MEDICATIONS ADMINISTERED No Known Medications MEDICAL (GENERAL) HISTORY Type Description Date Surgical History cyst excised from gums Surgical History left total hip 01/13 Surgical History right total hip 02/12 Hospitalization History No know Hospitalization history
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
--- OUTSIDE RECORDS SUMMARY | 2018-09-15 15:56 | XMS REPORT | Continuity of Care Document ---
Author Organization Unknown Address Unknown Allergies There is no data. Medications There is no data. Problems There is no data. Procedures There is no data. Results There is no data. Encounters ACCT No. Visit Date/Time Discharge Status Pt. Type Provider Facility Loc./Unit Complaint [id number] 09/03/2018 15:20:00 09/03/2018 23:59:59 [facility] Outpatient [facility] [id number] 04/17/2018 17:05:40 04/17/2018 23:59:59 [facility] Outpatient Annette Oropeza [id number] 03/05/2018 17:12:06 03/05/2018 23:59:59 [facility] Outpatient Annette Oropeza
[2018-09-15] MEDS ORDERED: RT-ALBUTEROL/IPRATROPIUM 3 ML (DUONEB) VIAL INH ONE (16:00)
[2018-09-15] MEDS ORDERED: methylPREDNISolone 125 MG (Solu-MEDROL) VIAL IVP ONE (16:00)
[2018-09-15] MEDS ORDERED: RT-ALBUTEROL SULF 2.5 MG/3 ML PRE-MIX VIAL INH SCH (16:00)
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
[2018-09-15 16:08] LABS: BASOPHILS % (AUTO) 0 % (0-10); EOSINOPHILS # (AUTO) 0.1 10^3/uL (0.0-0.3); EOSINOPHILS % (AUTO) 1 % (0-10); HEMATOCRIT 45 % (40-54); HEMOGLOBIN 15.1 G/DL (13.3-17.7); LYMPHOCYTES # (AUTO) 1.6 X 10^3 (1.0-4.0); LYMPHOCYTES % (AUTO) 13 % (12-44); MEAN CORPUSCULAR HEMOGLOBIN 29 PG (25-34); MEAN CORPUSCULAR HGB CONC 34 G/DL (32-36); MEAN CORPUSCULAR VOLUME 86 FL (80-99); MEAN PLATELET VOLUME 9.2 FL (7.4-10.4); MONOCYTES # (AUTO) 1.1 X 10^3 (0.0-1.0); MONOCYTES % (AUTO) 9 % (0-12); NEUTROPHILS # (AUTO) 9.2 X 10^3 (1.8-7.8); NEUTROPHILS % (AUTO) 77 % (42-75); PLATELET COUNT 396 10^3/uL (130-400); RED CELL DISTRIBUTION WIDTH 13.1 % (10.0-14.5)
[2018-09-15 16:12] LABS: ABG BASE EXCESS 4.1 MMOL/L (-2.5-2.5); ABG OXYGEN SATURATION 95 % (94-100); ABG PCO2 48 MMHG (35-45); ABG PH 7.39 (7.37-7.43); ABG PO2 73 MMHG (79-93); ABG TCO2 30.3 MMOL/L (21.0-31.0)
[2018-09-15 16:15] LABS: ALLENS TEST YES-POS
[2018-09-15 16:16] LABS: INSPIRED O2 ROOM AIR; PATIENT TEMP 98.3; VENTILATOR NO
[2018-09-15 16:27] LABS: ALANINE AMINOTRANSFERASE 29 U/L (0-55); ALBUMIN 4.6 GM/DL (3.2-4.5); ALKALINE PHOSPHATASE 83 U/L (40-136); BILIRUBIN,TOTAL 0.6 MG/DL (0.1-1.0); BUN/CREATININE RATIO 9; CALCIUM 9.4 MG/DL (8.5-10.1); CARBON DIOXIDE 27 MMOL/L (21-32); CHLORIDE 84 MMOL/L (98-107); CREATININE SERUM 0.68 MG/DL (0.60-1.30); GFR ESTIMATED > 60; GLUCOSE 96 MG/DL (70-105); POTASSIUM 4.6 MMOL/L (3.6-5.0); TOTAL PROTEIN 7.3 GM/DL (6.4-8.2)
[2018-09-15 16:32] VITALS: BP 144/91
--- NOTE | 2018-09-15 16:32 | Diagnostic Imaging Report ---
INDICATION: Shortness of breath. COMPARISON: None available. TECHNIQUE: Single frontal radiographs of the chest dated September 15, 2018. FINDINGS: The cardiac silhouette is mildly enlarged. No significant pulmonary vascular congestion. Focal opacity with smooth margins is identified within the medial aspect of the right lung base. The lungs are otherwise clear. No pleural effusion. No pneumothorax. No acute osseous abnormality. IMPRESSION: Opacities within the medial right lung base, favor to relate to an epicardial fat pad. However, frontal and lateral radiographs of the chest would help to further evaluate this region. Dictated by: Dictated on workstation # [id number]
[2018-09-15 16:33] LABS: SODIUM 121 MMOL/L (135-145)
[2018-09-15 16:54] LABS: AMPHETAMINE SCREEN, URINE NEGATIVE (NEGATIVE); BARBITURATE SCREEN URINE NEGATIVE (NEGATIVE); BENZODIAZEPINES SCREEN URINE NEGATIVE (NEGATIVE); CANNABINOID SCREEN, URINE NEGATIVE (NEGATIVE); COCAINE SCREEN URINE NEGATIVE (NEGATIVE); METHADONE STAT NEGATIVE (NEGATIVE); METHAMPHETAMINE SCREEN URINE S NEGATIVE (NEGATIVE); OPIATE SCREEN URINE NEGATIVE (NEGATIVE); OXYCODONE STAT NEGATIVE (NEGATIVE); PROPOXYPHENE STAT NEGATIVE (NEGATIVE); TRICYCLIC ANTIDEPRESSANTS SCRE NEGATIVE (NEGATIVE)
--- NOTE | 2018-09-15 18:13 | Diagnostic Imaging Report ---
Clinical indication: Patient with altered mental status. Exam: Axial CT scan of the brain performed without IV contrast. Comparison: None. Findings: Likely due to CT acquisition technique and artifact, there is limited visualization of the brain anatomical details. Skull streak artifact obscures portions of the posterior fossa and brainstem, as well. Overall, there is no gross significant abnormality seen. There is no evidence of acute cerebral infarct, intracranial hemorrhage, or gross mass effect. The brain parenchymal volume appears appropriate for patient's age. There is normal paniagua-white matter distinction. There is no significant midline shift or herniation. There is no evidence of hydrocephalus. The basal cisterns are unremarkable. The skull, extracranial soft tissue, and orbits are unremarkable. There is partial consolidation involving both mastoid air cells and middle ear regions. There is mild mucosal thickening involving the ethmoid sinus. Impression: 1: Artifact obscures portions of the brain parenchyma limiting evaluation. 2: There is no gross evidence of acute intracranial process. 3: There is partial consolidation of both mastoid air cells and middle ear regions which may be related to otomastoiditis. 4: Mild paranasal sinus disease. Dictated by: Dictated on workstation # [id number]
[2018-09-15] MEDS ORDERED: ACETAMINOPHEN 500 MG TAB (TYLENOL) PO ONE (18:15)
--- OUTSIDE RECORDS SUMMARY | 2018-09-15 18:35 | XMS REPORT | Continuity of Care Document ---
Author Organization Unknown Address Unknown Allergies There is no data. Medications There is no data. Problems There is no data. Procedures There is no data. Results There is no data. Encounters ACCT No. Visit Date/Time Discharge Status Pt. Type Provider Facility Loc./Unit Complaint [id number] 09/03/2018 15:20:00 09/03/2018 23:59:59 [facility] Outpatient TREVOR LIND LAC [facility] [id number] 04/17/2018 17:05:40 04/17/2018 23:59:59 [facility] Outpatient Annette Oropeza [id number] 03/05/2018 17:12:06 03/05/2018 23:59:59 [facility] Outpatient Annette Oropeza
--- NOTE | 2018-09-15 18:52 | NUR ---
SHAHEEN MENDOZA admitted to room 415-1, with an admitting diagnosis of COPD EXACCERBATION AND HYPONATREMIA, on 09/15/18 from AM via ED, accompanied by STAFF.SHAHEEN MENDOZA introduced to surroundings, call light, bed controls, phone, TV, temperature control, lights, meal times, smoking policy, visitor policy, side rail policy, bathrooms and showers. Patient Rights given to patient in the handbook. SHAHEEN MENDOZA verbalizes understanding that [facility] is not responsible for the loss or damage to any personal effects or valuables that are kept in the patients posession during their hospitalization.
[2018-09-15 19:03] VITALS: BP 138/76
[2018-09-15] MEDS ORDERED: CATHETER FLUSH 10 ML SYR IV PRN (19:15)
--- NOTE | 2018-09-15 19:45 | NUR ---
PER PT REQUEST THIS RN CALLED DR. WATSON IN REGARD TO THE SANTOS CATHETER ORDER ON THE ER ORDER SHEET. PT STATES HE IS VOIDING FINE AND DOES NOT NEED THE SANTOS CATHETER. DR. WATSON OKAYED LEAVING THE SANTOS CATHETER OUT AND OKAYED NOT ORDERING THE SANTOS CATHETER. REQUESTS VERIFIED.
[2018-09-15] MEDS: NS IV 1000 ML 1,000 ML IV SCH (19:57)
[2018-09-15] MEDS: cefTRIAXone 1,000 MG/SWFI 10 ML IV PUSH IV SCH ×2 (19:57)
[2018-09-15 20:05] VITALS: BP 138/76
[2018-09-15] MEDS ORDERED: RT-ALBUTEROL/IPRATROPIUM 3 ML (DUONEB) VIAL INH PRN (21:45)
[2018-09-15] MEDS: RT-ALBUTEROL/IPRATROPIUM 3 ML (DUONEB) VIAL INH SCH (22:27)
[2018-09-15] MEDS: methylPREDNISolone 125 MG (Solu-MEDROL) VIAL IV SCH (23:34)
[2018-09-15 23:36] VITALS: BP 151/78
[2018-09-16] MEDS: RT-ALBUTEROL/IPRATROPIUM 3 ML (DUONEB) VIAL INH SCH ×4 (03:04→23:05)
[2018-09-16] MEDS: NS IV 1000 ML 1,000 ML IV SCH ×3 (04:21→21:04)
--- NOTE | 2018-09-16 04:39 | NUR ---
THIS RN CALLED DR. WATSON IN REGARDS TO THE PT REQUESTING TYLENOL FOR A HEADACHE RATED AT A 2 ON A NUMERIC SCALE. ORDERS RECEIVED FOR TYLENOL 1000 MG PO PRN Q6H. ORDERS READ BACK AND VERIFIED.
[2018-09-16 04:50] VITALS: BP 133/74
[2018-09-16 06:12] LABS: BASOPHILS % (AUTO) 0 % (0-10); EOSINOPHILS % (AUTO) 0 % (0-10); HEMATOCRIT 45 % (40-54); HEMOGLOBIN 14.8 G/DL (13.3-17.7); LYMPHOCYTES # (AUTO) 0.4 X 10^3 (1.0-4.0); LYMPHOCYTES % (AUTO) 7 % (12-44); MEAN CORPUSCULAR HEMOGLOBIN 29 PG (25-34); MEAN CORPUSCULAR HGB CONC 33 G/DL (32-36); MEAN CORPUSCULAR VOLUME 88 FL (80-99); MEAN PLATELET VOLUME 9.5 FL (7.4-10.4); MONOCYTES % (AUTO) 1 % (0-12); NEUTROPHILS # (AUTO) 5.1 X 10^3 (1.8-7.8); NEUTROPHILS % (AUTO) 93 % (42-75); PLATELET COUNT 357 10^3/uL (130-400); RED CELL DISTRIBUTION WIDTH 13.1 % (10.0-14.5); WHITE BLOOD COUNT 5.5 10^3/uL (4.3-11.0)
[2018-09-16 06:40] LABS: ALANINE AMINOTRANSFERASE 28 U/L (0-55); ALBUMIN 4.2 GM/DL (3.2-4.5); ALKALINE PHOSPHATASE 77 U/L (40-136); BILIRUBIN,TOTAL 0.3 MG/DL (0.1-1.0); BUN/CREATININE RATIO 12; CALCIUM 9.2 MG/DL (8.5-10.1); CARBON DIOXIDE 22 MMOL/L (21-32); CHLORIDE 94 MMOL/L (98-107); CREATININE SERUM 0.67 MG/DL (0.60-1.30); GFR ESTIMATED > 60; GLUCOSE 148 MG/DL (70-105); SODIUM 129 MMOL/L (135-145); TOTAL PROTEIN 6.9 GM/DL (6.4-8.2)
[2018-09-16 08:00] VITALS: BP 136/65
[2018-09-16] MEDS: methylPREDNISolone 125 MG (Solu-MEDROL) VIAL IV SCH ×3 (08:25→23:26)
--- NOTE | 2018-09-16 08:28 | Diagnostic Imaging Report ---
INDICATION: COPD. Portable chest shows normal heart size and vascularity. The lungs are clear. There is no effusion or pneumothorax. IMPRESSION: No acute abnormality is seen with no change from 09/15/2018. Dictated by: Dictated on workstation # [id number]
[2018-09-16] MEDS ORDERED: ALBU18HF2 INH (10:30)
[2018-09-16] MEDS ORDERED: AMOX500C2 PO (10:30)
[2018-09-16] MEDS ORDERED: ALBU2.5V4 NEB (10:30)
[2018-09-16] MEDS ORDERED: GUAI-367 PO (10:30)
[2018-09-16] MEDS ORDERED: ACET-168 PO (10:30)
[2018-09-16 12:50] VITALS: BP 153/71
[2018-09-16 16:07] VITALS: BP 130/71
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
[2018-09-16] MEDS: cefTRIAXone 1,000 MG/SWFI 10 ML IV PUSH IV SCH ×2 (18:23)
[2018-09-16 20:00] VITALS: BP 160/70
[2018-09-17 00:51] VITALS: BP 136/72
[2018-09-17] MEDS: RT-ALBUTEROL/IPRATROPIUM 3 ML (DUONEB) VIAL INH SCH ×6 (01:51→21:35)
[2018-09-17 04:00] VITALS: BP 136/78
[2018-09-17] MEDS: NS IV 1000 ML 1,000 ML IV SCH ×3 (05:11→23:06)
[2018-09-17 08:00] VITALS: BP 131/76
[2018-09-17] MEDS: methylPREDNISolone 125 MG (Solu-MEDROL) VIAL IV SCH ×3 (09:14→23:06)
[2018-09-17 12:00] VITALS: BP 160/80
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
[2018-09-17 16:04] VITALS: BP 159/74
--- NOTE | 2018-09-17 16:56 | Progress Note-Hospitalist ---
Progress Note Progress Notes/Assess & Plan Date Seen 09/17/18 Time Seen by Provider: 16:54 Assessment & Plan The patient reports that he is feeling better today. He still requires oxygen and becomes dyspneic with a long sentence. Physical exam he is sitting up at the edge of the bed. His face is flushed. Lungs show relatively shallow breath sounds with distant character. CV is poorly heard because of respiratory effort. Abdomen is obese. Extremities show no pedal edema. Impression: COPD with hypoxia. 2.hyponatremia. Focused Exam Lactate Level 09/15/18 15:55: Lactic Acid Level 0.95 ROSI WATSON MD September 17, 2018 16:56
--- NOTE | 2018-09-17 18:41 | NUR ---
paitent sat droped to 87% at rest on room air after 6 min. paitent qualify for home oxygen Addendum: 09/17/18 at 1842 by SUNI WEAVER RT Amended: Links added.
[2018-09-17] MEDS: cefTRIAXone 1,000 MG/SWFI 10 ML IV PUSH IV SCH ×2 (18:58)
[2018-09-17] MEDS: ACETAMINOPHEN 500 MG TAB (TYLENOL) PO PRN (21:27)
[2018-09-18 00:23] VITALS: BP 162/82
[2018-09-18] MEDS: RT-ALBUTEROL/IPRATROPIUM 3 ML (DUONEB) VIAL INH SCH ×2 (02:15→11:21)
[2018-09-18 05:51] LABS: BUN/CREATININE RATIO 17; CALCIUM 8.6 MG/DL (8.5-10.1); CARBON DIOXIDE 23 MMOL/L (21-32); CHLORIDE 102 MMOL/L (98-107); CREATININE SERUM 0.66 MG/DL (0.60-1.30); GFR ESTIMATED > 60; GLUCOSE 129 MG/DL (70-105); POTASSIUM 4.3 MMOL/L (3.6-5.0); SODIUM 134 MMOL/L (135-145)
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
[2018-09-18 08:00] VITALS: BP 159/75
[2018-09-18] MEDS ORDERED: RT-ADVAIR HFA 115/21 MCG PER PUFF IH SCH (08:00)
[2018-09-18] MEDS ORDERED: LORATADINE (CLARITIN) 10 MG TAB PO SCH (09:00)
[2018-09-18] MEDS: ACETAMINOPHEN 500 MG TAB (TYLENOL) PO PRN (09:18)
[2018-09-18] MEDS ORDERED: NS 250 ML (IVPB) BAG IV ONE (10:00)
[2018-09-18] MEDS ORDERED: IOHEXOL 350 MG/ML 150 ML (OMNIPAQUE 350) VIAL IV ONE (10:00)
[2018-09-18] MEDS ORDERED: HOLD METFORMIN - RECEIVED CONTRAST 20 ML VIAL IV SCH (10:00)
--- NOTE | 2018-09-18 11:09 | Diagnostic Imaging Report ---
PROCEDURE: CT angiography of the chest with contrast. TECHNIQUE: Multiple contiguous axial images were obtained through the chest after uneventful bolus administration of intravenous contrast. 2D reconstructed CTA MIP acquisitions were also performed. Auto Exposure Controls were utilized during the CT exam to meet ALARA standards for radiation dose reduction. INDICATION: Hypoxia. No prior studies are available for comparison. Evaluation of the pulmonary arterial system is without thromboembolism. No filling defects are seen within central, lobar or segmental branches. Thoracic aorta is of normal caliber. There is no dissection identified. No pericardial or pleural fluid is seen. No axillary lymphadenopathy is detected. No definite mediastinal or hilar lymphadenopathy is detected. Evaluation does show some linear scarring or atelectasis right lower lobe. 5 mm subpleural nodule left lower lobe is noted. Upper abdomen is unremarkable. Impression: 1. No evidence of pulmonary embolism or thoracic aortic dissection. No acute feature is detected. Dictated by: Dictated on workstation # [id number]
--- NOTE | 2018-09-18 11:36 | Progress Note-Hospitalist ---
Progress Note Progress Notes/Assess & Plan Date Seen 09/18/18 Time Seen by Provider: 11:33 Assessment & Plan The patient qualifies for home oxygen by testing. Things are coming together for him and his new residence. He has completed a CT scan of the chest. CT scan did not not show any evidence of tumor or pulmonary embolus. He will be dismissed. Home oxygen has been arranged. Physical exam: Lungs are clear. Breath sounds are distant. CV is regular. Abdomen is obese and firm. Extremities show no pedal edema. Impression: COPD/hypoxia. 2.hyponatremia at admission Plan: Discharge. Follow-up with Dr. Campuzano. Focused Exam Lactate Level 09/15/18 15:55: Lactic Acid Level 0.95 ROSI WATSON MD September 18, 2018 11:36
--- NOTE | 2018-09-18 11:43 | Discharge Inst-Simple/Standard ---
Discharge Inst-Standard Patient Instructions/Follow Up Plan of Care/Instructions/FU: Medications as listed on the discharge sequence. 2.oxygen per nasal cannula. Use at 2 L/m at rest, and 2-4 L when up and about. See Dr. Campuzano in follow-up. Activity as Tolerated: Yes Goal: Independent function at home Discharge Diet: ADA Diet Planned Outpatient Orders/Ref. Pneu Vac Indicated: Yes ROSI WATSON MD September 18, 2018 11:43
[2018-09-18] MEDS ORDERED: methylPREDNISolone 40 MG/ML (Solu-MEDROL) VIAL IV SCH (12:00)
--- NOTE | 2018-09-18 13:31 | NUR ---
CM/SS, final discharge planning. DME: Coordinated new home O2 with patient preferred agency, [facility]. Agency understands to deliver portable to patient hospital room and to communicate directly with patient/Guillermina Coleman for home set up. Instructed [facility] to communicate directly with patient's PCP Dr. Chente Lomeli in [place] for any further O2 documentation needs. Patient and unit RN updated. Addendum: 09/18/18 at 1435 by CHIRAG CURTIS Patient was contacted by [facility] that he will have a $45 per month billing because he does not have a co-insurance. He plans to apply for [place], provided application and advised him to call [facility] for advice/assistance.
--- NOTE | 2018-09-18 14:30 | NUR ---
Reddy is a 53 yo male patient currently inpatient at [facility] for COPD exacerbation. Patient is A&O X 4 and has denied pain throughout the day. Mikey is scheduled to discharge soon, all discharge instructions reviewed with Mikey and no questions at this time. Currently, awaiting delivery of oxygen tank. Once tank is delivered patient is set to discharge. NO further concerns noted.
[2018-09-18] MEDS ORDERED: MONTELUKAST 10 MG (SINGULAIR) TAB PO SCH (21:00)
--- OUTSIDE RECORDS SUMMARY | 2018-09-22 17:07 | XMS REPORT | Continuity of Care Document ---
Author Organization Unknown Address Unknown Allergies Active Description Code Type Severity Reaction Onset Reported/Identified Relationship to Patient Clinical Status Yes No Known Drug Allergies [id number] Drug Allergy Unknown N/A 09/15/2018 Medications There is no data. 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 07/31/2018 RICKY FELDMAN MD Ot F17.210 NICOTINE DEPENDENCE, CIGARETTES, UNCOMPL 07/31/2018 RICKY FELDMAN MD Ot J44.9 CHRONIC OBSTRUCTIVE PULMONARY DISEASE, U 07/31/2018 RICKY FELDMAN MD Ot K14.9 DISEASE OF TONGUE, UNSPECIFIED 07/31/2018 RICKY FELDMAN MD Ot Z79.899 OTHER 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 MEDICINE PHYSICIAN (CURRENT) DRUG THERAPY 08/06/2018 RICKY FELDMAN MD Ot 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 08/06/2018 RICKY FELDMAN MD Ot F17.210 NICOTINE DEPENDENCE, CIGARETTES, UNCOMPL 08/06/2018 RICKY FELDMAN MD Ot J44.9 CHRONIC OBSTRUCTIVE PULMONARY DISEASE, U 08/06/2018 RICKY FELDMAN MD Ot Z79.899 OTHER [facility] (CURRENT) DRUG THERAPY 08/10/2018 RICKY FELDMAN MD Ot G47.33 OBSTRUCTIVE SLEEP APNEA (ADULT) (PEDIATR 09/15/2018 RICKY FELDMAN MD Ot G47.33 OBSTRUCTIVE SLEEP APNEA (ADULT) (PEDIATR 09/15/2018 RICKY FELDMAN MD Ot G47.33 OBSTRUCTIVE SLEEP APNEA (ADULT) (PEDIATR 09/15/2018 RICKY FELDMAN MD Ot G47.33 OBSTRUCTIVE SLEEP APNEA (ADULT) (PEDIATR 09/18/2018 RICKY FELDMAN MD Ot G47.33 OBSTRUCTIVE SLEEP APNEA (ADULT) (PEDIATR Procedures There is no data. Results Test Result Range Methicillin resistant Staphylococcus aureus (MRSA) screening culture - 07/31/18 06:15 Methicillin resistant Staphylococcus aureus (MRSA) screening culture NEG NRG Complete blood count (CBC) with automated white blood cell (WBC) differential - 09/15/18 15:55 Blood leukocytes automated count (number/volume) 12.0 10*3/uL 4.3-11.0 Blood erythrocytes automated count (number/volume) 5.23 10*6/uL 4.35-5.85 Venous blood hemoglobin measurement (mass/volume) 15.1 g/dL 13.3-17.7 Blood hematocrit (volume fraction) 45 % 40-54 Automated erythrocyte mean corpuscular volume 86 [foz_us] 80-99 Automated erythrocyte mean corpuscular hemoglobin (mass per erythrocyte) 29 pg 25-34 Automated erythrocyte mean corpuscular hemoglobin concentration measurement (mass/volume) 34 g/dL 32-36 Automated erythrocyte distribution width ratio 13.1 % 10.0- 14.5 Automated blood platelet count (count/volume) 396 10*3/uL 130-400 Automated blood platelet mean volume measurement 9.2 [foz_us] 7.4-10.4 Automated blood neutrophils/100 leukocytes 77 % 42-75 Automated blood lymphocytes/100 leukocytes 13 % 12-44 Blood monocytes/100 leukocytes 9 % 0-12 Automated blood eosinophils/100 leukocytes 1 % 0-10 Automated blood basophils/100 leukocytes 0 % 0-10 Blood neutrophils automated count (number/volume) 9.2 10*3 1.8-7.8 Blood lymphocytes automated count (number/volume) 1.6 10*3 1.0-4.0 Blood monocytes automated count (number/volume) 1.1 10*3 0.0- 1.0 Automated eosinophil count 0.1 10*3/uL 0.0-0.3 Automated blood basophil count (count/volume) 0.0 10*3/uL 0.0-0.1 Blood lactic acid measurement (moles/volume) - 09/15/18 15:55 Blood lactic acid measurement (moles/volume) 0.95 mmol/L 0.50- 2.00 Comprehensive metabolic panel - 09/15/18 15:55 Serum or plasma sodium measurement (moles/volume) 121 mmol/L 135-145 Serum or plasma potassium measurement (moles/volume) 4.6 mmol/L 3.6-5.0 Serum or plasma chloride measurement (moles/volume) 84 mmol/L 98-107 Carbon dioxide 27 mmol/L 21-32 Serum or plasma anion gap determination (moles/volume) 10 mmol/L 5-14 Serum or plasma urea nitrogen measurement (mass/volume) 6 mg/dL 7-18 Serum or plasma creatinine measurement (mass/volume) 0.68 mg/dL 0.60-1.30 Serum or plasma urea nitrogen/creatinine mass ratio 9 NRG Serum or plasma creatinine measurement with calculation of estimated glomerular filtration rate > NRG Serum or plasma glucose measurement (mass/volume) 96 mg/dL 70-105 Serum or plasma calcium measurement (mass/volume) 9.4 mg/dL 8.5-10.1 Serum or plasma total bilirubin measurement (mass/volume) 0.6 mg/dL 0.1-1.0 Serum or plasma alkaline phosphatase measurement (enzymatic activity/volume) 83 U/L 40-136 Serum or plasma aspartate aminotransferase measurement (enzymatic activity/volume) 31 U/L 5-34 Serum or plasma alanine aminotransferase measurement (enzymatic activity/volume) 29 U/L 0-55 Serum or plasma protein measurement (mass/volume) 7.3 g/dL 6.4-8.2 Serum or plasma albumin measurement (mass/volume) 4.6 g/dL 3.2-4.5 Serum or plasma troponin i.cardiac measurement (mass/volume) - 09/15/18 15:55 Serum or plasma troponin i.cardiac measurement (mass/volume) < ng/mL <0.028 Bacterial blood culture - 09/15/18 15:55 Bacterial blood culture NG NRG Arterial blood gas measurement - 09/15/18 16:05 Blood pCO2 48 mm[Hg] 35-45 Blood pO2 73 mm[Hg] 79-93 Arterial blood bicarbonate measurement (moles/volume) 29 mmol/L 23-27 Arterial blood base excess by calculation 4.1 mmol/L -2.5-2.5 Arterial blood oxygen saturation measurement 95 % 94-100 * Inhaled oxygen flow rate ROOM AIR NRG Arterial blood pH measurement with patient temperature correction 7.39 7.37-7.43 Arterial blood carbon dioxide, total measurement (moles/volume) 30.3 mmol/L 21.0-31.0 Body site LT RAD NRG Assessment of wrist artery patency prior to arterial puncture YES-POS NRG Setting of ventilation mode NO NRG Measurement of body temperature 98.3 NRG Bacterial blood culture - 09/15/18 16:16 Bacterial blood culture NG NRG Urine drug screening test - 09/15/18 16:20 Urine phencyclidine detection by screening method NEGATIVE NEGATIVE Urine benzodiazepines detection by screening method NEGATIVE NEGATIVE Urine cocaine detection NEGATIVE NEGATIVE Urine amphetamines detection by screening method NEGATIVE NEGATIVE Urine methamphetamine detection by screening method NEGATIVE NEGATIVE Urine cannabinoids detection by screening method NEGATIVE NEGATIVE Urine opiates detection by screening method NEGATIVE NEGATIVE Urine barbiturates detection NEGATIVE NEGATIVE Screening urine tricyclic antidepressants detection NEGATIVE NEGATIVE Urine methadone detection by screening method NEGATIVE NEGATIVE Urine oxycodone detection NEGATIVE NEGATIVE Urine propoxyphene detection NEGATIVE NEGATIVE Complete blood count (CBC) with automated white blood cell (WBC) differential - 09/16/18 05:55 Blood leukocytes automated count (number/volume) 5.5 10*3/uL 4.3-11.0 Blood erythrocytes automated count (number/volume) 5.10 10*6/uL 4.35-5.85 Venous blood hemoglobin measurement (mass/volume) 14.8 g/dL 13.3-17.7 Blood hematocrit (volume fraction) 45 % 40-54 Automated erythrocyte mean corpuscular volume 88 [foz_us] 80-99 Automated erythrocyte mean corpuscular hemoglobin (mass per erythrocyte) 29 pg 25-34 Automated erythrocyte mean corpuscular hemoglobin concentration measurement (mass/volume) 33 g/dL 32-36 Automated erythrocyte distribution width ratio 13.1 % 10.0- 14.5 Automated blood platelet count (count/volume) 357 10*3/uL 130-400 Automated blood platelet mean volume measurement 9.5 [foz_us] 7.4-10.4 Automated blood neutrophils/100 leukocytes 93 % 42-75 Automated blood lymphocytes/100 leukocytes 7 % 12-44 Blood monocytes/100 leukocytes 1 % 0-12 Automated blood eosinophils/100 leukocytes 0 % 0-10 Automated blood basophils/100 leukocytes 0 % 0-10 Blood neutrophils automated count (number/volume) 5.1 10*3 1.8-7.8 Blood lymphocytes automated count (number/volume) 0.4 10*3 1.0-4.0 Blood monocytes automated count (number/volume) 0.0 10*3 0.0- 1.0 Automated eosinophil count 0.0 10*3/uL 0.0-0.3 Automated blood basophil count (count/volume) 0.0 10*3/uL 0.0-0.1 Comprehensive metabolic panel - 09/16/18 05:55 Serum or plasma sodium measurement (moles/volume) 129 mmol/L 135-145 Serum or plasma potassium measurement (moles/volume) 5.0 mmol/L 3.6-5.0 Serum or plasma chloride measurement (moles/volume) 94 mmol/L 98-107 Carbon dioxide 22 mmol/L 21-32 Serum or plasma anion gap determination (moles/volume) 13 mmol/L 5-14 Serum or plasma urea nitrogen measurement (mass/volume) 8 mg/dL 7-18 Serum or plasma creatinine measurement (mass/volume) 0.67 mg/dL 0.60-1.30 Serum or plasma urea nitrogen/creatinine mass ratio 12 NRG Serum or plasma creatinine measurement with calculation of estimated glomerular filtration rate > NRG Serum or plasma glucose measurement (mass/volume) 148 mg/dL 70-105 Serum or plasma calcium measurement (mass/volume) 9.2 mg/dL 8.5-10.1 Serum or plasma total bilirubin measurement (mass/volume) 0.3 mg/dL 0.1-1.0 Serum or plasma alkaline phosphatase measurement (enzymatic activity/volume) 77 U/L 40-136 Serum or plasma aspartate aminotransferase measurement (enzymatic activity/volume) 23 U/L 5-34 Serum or plasma alanine aminotransferase measurement (enzymatic activity/volume) 28 U/L 0-55 Serum or plasma protein measurement (mass/volume) 6.9 g/dL 6.4-8.2 Serum or plasma albumin measurement (mass/volume) 4.2 g/dL 3.2-4.5 CALCIUM CORRECTED 9.0 mg/dL 8.5-10.1 Whole blood basic metabolic panel - 09/18/18 05:05 Serum or plasma sodium measurement (moles/volume) 134 mmol/L 135-145 Serum or plasma potassium measurement (moles/volume) 4.3 mmol/L 3.6-5.0 Serum or plasma chloride measurement (moles/volume) 102 mmol/L 98-107 Carbon dioxide 23 mmol/L 21-32 Serum or plasma anion gap determination (moles/volume) 9 mmol/L 5-14 Serum or plasma urea nitrogen measurement (mass/volume) 11 mg/dL 7-18 Serum or plasma creatinine measurement (mass/volume) 0.66 mg/dL 0.60-1.30 Serum or plasma urea nitrogen/creatinine mass ratio 17 NRG Serum or plasma creatinine measurement with calculation of estimated glomerular filtration rate > NRG Serum or plasma glucose measurement (mass/volume) 129 mg/dL 70-105 Serum or plasma calcium measurement (mass/volume) 8.6 mg/dL 8.5-10.1 Encounters ACCT No. Visit Date/Time Discharge Status Pt. Type Provider Facility Loc./Unit Complaint [id number] 09/03/2018 15:20:00 09/03/2018 23:59:59 CLS [facility] [id number] 04/17/2018 17:05:40 04/17/2018 23:59:59 CLS Outpatient Annette Oropeza [id number] 03/05/2018 17:12:06 03/05/2018 23:59:59 CLS Outpatient Annette Oropeza [id number] 09/17/2018 13:48:00 09/18/2018 14:50:00 DIS Inpatient ROSI WATSON MD [facility] 4TH COPD EXACERBATION,HYPONATREMIA [id number] 08/31/2018 20:00:00 08/31/2018 23:59:59 CLS Preadmit RICKY FELDMAN MD [facility] SLEEP AUBRIE G47.33 [id number] 07/31/2018 05:56:00 07/31/2018 10:26:00 DIS Outpatient RICKY FELDMAN MD [facility] SDC TONGUE LESION [id number] 07/27/2018 12:33:00 07/27/2018 12:39:00 DIS Outpatient RICKY FELDMAN MD [facility] PREOP TONGUE LESION
== END 2018-09-18 14:50 | disposition home or self-care (01) | DRG 191 ==
LOC: EDUNIT# 15:51 → ER 15:51 → UNDOADMOB 16:38 → 4TH 16:38 → ER 18:50 → 4TH 09-16 15:38 → INTOOBSV 09-17 13:48 → OBSVTOIN 09-17 13:48 → UNDODISIN 09-18 14:50
PROVIDERS: ADMIT Internal Medicine; ATTEND Internal Medicine
DX: J44.1 Chronic obstructive pulmonary disease with (acute) exacerbation (principal); R09.02 Hypoxemia; E87.1 Hypo-osmolality and hyponatremia; F17.210 Nicotine dependence, cigarettes, uncomplicated; H70.93 Unspecified mastoiditis, bilateral; J30.9 Allergic rhinitis, unspecified; M19.90 Unspecified osteoarthritis, unspecified site
CPT/HCPCS: 36415; 70450; 71045; 71275; 80048; 80053; 80306; 82805; 83605; 84484; 85025; 87040; 93005; 94640; 94660; 94760; 94761; G0378

== ENCOUNTER 2018-10-06 19:58 | Outpatient (CLI) | payer MEDICARE ==
[~2018-10-06 19:58] MED LIST changes: +ACET-168 PO; +ALBU18HF2 INH; +ALBU2.5V4 NEB; +AMOX500C2 PO; +GUAI-367 PO
== END 2018-10-07 06:53 | disposition home or self-care (01) ==
LOC: SLEEP 19:58
PROVIDERS: ATTEND Otolaryngology Otolaryngology/Facial Plastic Surgery
DX: G47.33 Obstructive sleep apnea (adult) (pediatric) (principal); G47.10 Hypersomnia, unspecified; R06.83 Snoring; R09.02 Hypoxemia
CPT/HCPCS: 95810

== ENCOUNTER → 2018-11-04 | Outpatient (CLI) | payer MEDICARE ==
[~2018-11-04] MED LIST changes: +HOLD METFORMIN - RECEIVED CONTRAST 20 ML VIAL IV SCH; +IOHEXOL 350 MG/ML 100 ML (OMNIPAQUE 350) VIAL IV ONE; +NS 100 ML (IVPB) BAG IV ONE
[2018-11-04 08:30] LABS: BUN/CREATININE RATIO 10; CREATININE SERUM 0.81 MG/DL (0.60-1.30); GFR ESTIMATED > 60
--- NOTE | 2018-11-04 10:01 | Diagnostic Imaging Report ---
PROCEDURE: CT chest with contrast only. TECHNIQUE: Multiple contiguous axial images were obtained through the chest after administration of intravenous contrast. Auto Exposure Controls were utilized during the CT exam to meet ALARA standards for radiation dose reduction. INDICATION: Cough and shortness of breath. Comparison is 09/18/2018. FINDINGS: There is minimal atelectasis in the right lower lobe. A 4 mm subpleural nodule in the left lower lobe is likely an intrapulmonary lymph node and is unchanged. No edema or pneumonia. No pleural effusion or pneumothorax. Heart size is normal. No pericardial effusion. Aorta is normal in caliber. No axillary, supraclavicular or mediastinal lymphadenopathy. Limited views of the upper abdomen are normal. No suspicious osseous lesions. IMPRESSION: 1. Stable 4 mm left lower lobe nodule, likely an intrapulmonary lymph node. No further followup is required. Dictated by: Dictated on workstation # [id number]
== END ==
LOC: RAD 07:59
PROVIDERS: ATTEND Nurse Practitioner Family
DX: J44.9 Chronic obstructive pulmonary disease, unspecified (principal); J30.9 Allergic rhinitis, unspecified; E66.9 Obesity, unspecified; R91.1 Solitary pulmonary nodule
CPT/HCPCS: 36415; 71260; 82565; 84520

== ENCOUNTER 2018-11-17 20:00 | Outpatient (CLI) | payer MEDICARE ==
[~2018-11-17 20:00] MED LIST changes: -HOLD METFORMIN - RECEIVED CONTRAST 20 ML VIAL IV SCH; -IOHEXOL 350 MG/ML 100 ML (OMNIPAQUE 350) VIAL IV ONE; -NS 100 ML (IVPB) BAG IV ONE
== END 2018-11-18 06:50 | disposition home or self-care (01) ==
LOC: SLEEP 20:00
PROVIDERS: ATTEND Otolaryngology Otolaryngology/Facial Plastic Surgery
DX: G47.33 Obstructive sleep apnea (adult) (pediatric) (principal); G47.36 Sleep related hypoventilation in conditions classified elsewhere; G47.61 Periodic limb movement disorder
CPT/HCPCS: 95811

== ENCOUNTER → 2018-11-18 | Outpatient (CLI) | payer MEDICARE ==
[~2018-11-18] MED LIST changes: +RT-ALBUTEROL SULF 2.5 MG/3 ML PRE-MIX VIAL INH ONE
== END ==
LOC: RT 15:04
PROVIDERS: ATTEND Nurse Practitioner Family
DX: J30.9 Allergic rhinitis, unspecified (principal); J44.9 Chronic obstructive pulmonary disease, unspecified; E66.9 Obesity, unspecified
CPT/HCPCS: 94060; 94640; 94726; 94729

== ENCOUNTER 2019-06-16 13:40 | Outpatient (RCR) | payer MEDICARE ==
--- NOTE | 2019-06-08 12:27 | NUR ---
PT SCHEDULED FOR PULMONARY REHAB EVALUATION; LOOKED UP PT'S FILE TO SEE IF CURRENT PFT IN RECORDS (FOR EVAL) AND TO GET MAILING ADDRESS TO SEND PAPERWORK
[~2019-06-16 13:40] MED LIST changes: -ACET325C5 PO; +ACET325C7 PO; -LIDO15SO2 MM; +LIDO20SO23 MM; -RT-ALBUTEROL SULF 2.5 MG/3 ML PRE-MIX VIAL INH ONE
[2019-06-29 12:50] VITALS: BP 150/55
[2019-06-29 13:44] VITALS: BP 148/50
[2019-07-01 13:00] VITALS: BP 150/60
[2019-07-01 14:00] VITALS: BP 160/60
[2019-07-08 12:55] VITALS: BP 160/60
[2019-07-08 14:00] VITALS: BP 120/71
== END 2019-09-14 | disposition home or self-care (01) ==
LOC: PULM 13:40
PROVIDERS: ATTEND Nurse Practitioner Family
DX: J44.9 Chronic obstructive pulmonary disease, unspecified (principal); R09.02 Hypoxemia; G47.33 Obstructive sleep apnea (adult) (pediatric); Z72.0 Tobacco use
CPT/HCPCS: 99211

== ENCOUNTER → 2019-10-07 | Outpatient (CLI) | payer MEDICAID, MEDICARE ==
--- NOTE | 2019-10-07 16:59 | Diagnostic Imaging Report ---
Exam: Ultrasound thyroid. Date: October 07, 2019. Comparison: CT chest November 04, 2018. Indication: 54-year-old male, thyroid nodule. Findings: Two-dimensional grayscale and color Doppler images were obtained of the thyroid. Right lobe of the thyroid: There is a hypoechoic right thyroid nodule measuring 4 x 5 x 5 mm in size The right lobe of the thyroid measures 4.0 x 1.8 x 1.4 cm. Left lobe of the thyroid: The left lobe of the thyroid has uniform echotexture. There are no solid or cystic parenchymal distorting masses of the left thyroid. The left lobe of the thyroid measures 3.5 x 2.0 x 2.0 cm. Isthmus: The thyroid isthmus is unremarkable. The isthmus measures 0.9 cm. Impression: 1. A 5 mm right thyroid nodule which is not suspicious. There is no dominant or suspicious-appearing thyroid nodule. Dictated by: Dictated on workstation # [id number]
== END ==
LOC: RAD 14:51
PROVIDERS: ATTEND Otolaryngology Otolaryngology/Facial Plastic Surgery
DX: E04.2 Nontoxic multinodular goiter (principal)
CPT/HCPCS: 76536

== ENCOUNTER → 2019-10-27 | Outpatient (CLI) | payer MEDICARE ==
[~2019-10-27] MED LIST changes: +HOLD METFORMIN - RECEIVED CONTRAST 20 ML VIAL IV SCH; +IOHEXOL 350 MG/ML 100 ML (OMNIPAQUE 350) VIAL IV ONE; +NS 100 ML (IVPB) BAG IV ONE
[2019-10-27 09:23] LABS: CREATININE SERUM 0.83 MG/DL (0.60-1.30); GFR ESTIMATED > 60
[2019-10-27 09:24] LABS: BUN/CREATININE RATIO 16
--- NOTE | 2019-10-27 11:28 | Diagnostic Imaging Report ---
PROCEDURE: CT chest with contrast only. TECHNIQUE: Multiple contiguous axial images were obtained through the chest after administration of intravenous contrast. Auto Exposure Controls were utilized during the CT exam to meet ALARA standards for radiation dose reduction. INDICATION: Hypoxemia, cough, COPD. COMPARISON: 11/04/2018. FINDINGS: A tiny benign 4 mm subpleural nodule in the left lower lobe remains stable. No new dominant or suspicious lung mass. No findings of pneumonia or pulmonary edema. No bronchiectasis, blebs, bullous disease, or cyst formation. No thoracic adenopathy. No pleural or pericardial effusion. No acute chest wall pathology. The lung volumes are symmetric and normal. The visualized upper abdomen is nonacute. IMPRESSION: Stable benign subpleural micronodule in the left lower lobe. No acute or suspicious finding. Dictated by: Dictated on workstation # [id number]
== END ==
LOC: RAD 08:33
PROVIDERS: ATTEND Nurse Practitioner Family
DX: J44.9 Chronic obstructive pulmonary disease, unspecified (principal); J30.9 Allergic rhinitis, unspecified; E66.9 Obesity, unspecified; R91.8 Other nonspecific abnormal finding of lung field; Z72.0 Tobacco use
CPT/HCPCS: 36415; 71260; 82565; 84520

== ENCOUNTER → 2020-10-16 | Outpatient (CLI) | payer MEDICARE, OTHER ==
[~2020-10-16] MED LIST changes: -HOLD METFORMIN - RECEIVED CONTRAST 20 ML VIAL IV SCH; -IOHEXOL 350 MG/ML 100 ML (OMNIPAQUE 350) VIAL IV ONE; -NS 100 ML (IVPB) BAG IV ONE; +RT-ALBUTEROL SULF 2.5 MG/3 ML PRE-MIX VIAL IH ONE
== END ==
LOC: RT 17:12
PROVIDERS: ATTEND Nurse Practitioner Family
DX: J44.9 Chronic obstructive pulmonary disease, unspecified (principal)
CPT/HCPCS: 94060; 94726; 94729

== ENCOUNTER → 2020-11-01 | Outpatient (CLI) | payer MEDICARE, OTHER ==
[~2020-11-01] MED LIST changes: -RT-ALBUTEROL SULF 2.5 MG/3 ML PRE-MIX VIAL IH ONE
--- NOTE | 2020-11-01 16:55 | Diagnostic Imaging Report ---
EXAMINATION: CT chest without contrast (lung screening). TECHNIQUE: Multiple contiguous axial images were obtained through the chest without the use of intravenous contrast according to lung cancer screening protocol. All CT scans use one or more of the following dose optimizing techniques: automated exposure control, MA and/or KvP adjustment based on patient size and exam type or iterative reconstruction. HISTORY: Greater than 30 pack year history of smoking. COMPARISON: None available. FINDINGS: There is no edema or pneumonia. No pleural effusion. No pneumothorax. There is a 6 mm average diameter left lower lobe pulmonary nodule. There is no axillary or supraclavicular lymphadenopathy. There is no mediastinal lymphadenopathy. Heart size is normal. There are mild coronary artery calcifications. No pericardial effusion. Aorta is normal in caliber. Limited views of the upper abdomen are unremarkable. There are no suspicious osseus lesions. IMPRESSION: 1. No suspicious pulmonary nodules. LUNG-RADS CATEGORY: 1 MODIFIER: None. Dictated by: Dictated on workstation # [id number]
== END ==
LOC: RAD 14:45
PROVIDERS: ATTEND Nurse Practitioner Family
DX: Z12.2 Encounter for screening for malignant neoplasm of respiratory organs (principal); F17.210 Nicotine dependence, cigarettes, uncomplicated
CPT/HCPCS: 71271

== ENCOUNTER → 2021-01-22 | Outpatient (CLI) | payer MEDICARE ==
--- NOTE | 2021-01-22 20:00 | Diagnostic Imaging Report ---
CLINICAL INDICATION: Patient with history of right thyroid nodule. EXAM: Ultrasound of the thyroid gland. COMPARISONS: Ultrasound of the thyroid gland dated 10/07/2019. FINDINGS: THYROID NODULES: There is a 6 mm x 5 mm solid and cystic nodule involving the right thyroid lobe which is stable. THYROID GLAND: Besides the thyroid nodules, the thyroid gland has normal size, shape and echogenicity. The right lobe measures 4.4 cm x 2.1 cm x 1.8 cm and the left lobe measures 5.0 cm x 2.2 cm x 1.9 cm in their three dimensions. ISTHMUS: The isthmus is enlarged and measures 10 mm in thickness. IMPRESSION: 1: Stable 6 mm nonsuspicious nodule involving the right thyroid lobe. 2: Stable thickening of the isthmus with no measurable mass seen within it. Dictated by: Dictated on workstation # [id number]
== END ==
LOC: RAD 15:00
PROVIDERS: ATTEND Otolaryngology Otolaryngology/Facial Plastic Surgery
DX: E04.1 Nontoxic single thyroid nodule (principal)
CPT/HCPCS: 76536

== ENCOUNTER → 2023-01-09 | Outpatient (CLI) | payer MEDICARE ==
[~2023-01-09] MED LIST changes: +LIDO15SO3 MM; -LIDO20SO23 MM
--- NOTE | 2023-01-09 17:39 | Diagnostic Imaging Report ---
PROCEDURE: US Thyroid. TECHNIQUE: Multiple real-time grayscale images were obtained of the thyroid in various projections. INDICATION: Right thyroid nodule follow-up. COMPARISON: 01/22/2021. FINDINGS: Right thyroid lobe: Size (cm): 4.4 x 1.4 x 1.3 Echotexture: Normal. Vascularity: Normal. Nodules: There is a hypoechoic solid nodule measuring 6 mm in the right thyroid, stable since 2019. Isthmus: Size (cm): 1.2 Nodules: None. Left thyroid lobe: Size (cm): 5.0 x 2.2 x 1.8 Echotexture: Normal. Vascularity: Normal. Nodules: None. IMPRESSION: 1. Stable small nodule in the right thyroid. This does not qualify for follow-up based on TI-RADS criteria. Dictated by: Dictated on workstation # [id number]
== END ==
LOC: RAD 13:55
PROVIDERS: ATTEND Otolaryngology Otolaryngology/Facial Plastic Surgery
DX: E04.1 Nontoxic single thyroid nodule (principal)
CPT/HCPCS: 76536